=== PATIENT | female | born 1945 | race African-American/Black ===

== ENCOUNTER 2017-02-11 15:52 | Emergency (ER) | payer MEDICARE, OTHER ==
--- NOTE | 2017-02-11 17:21 | ER Document Report ---
ED Hip Pain/Injury - General Chief Complaint: L hip and leg pain Stated Complaint: LEFT HIP AND LEG PAIN Time seen by provider: 17:21 Mode of Arrival: Ambulatory Notes: 71-year-old female presents to ED for left hip and leg pain. She is also got head and neck and low back pain since fall in December. She states she has not had any imaging done since she fell. She states she went to her primary doctor and she did a echocardiogram to make sure she didn't have a heart problem when she fell but is done no imaging of her head neck back or hip. TRAVEL OUTSIDE OF THE [place] IN LAST 30 DAYS: No - HPI Patient complains to provider of: Injury, Pain, Hip, Thigh, Other - Head and neck and low back pain Occurred: Other - Several weeks states she fell in December Where: Public place - Grocery store Onset/Duration: Gradual Quality of pain: Achy, Sharp Severity: Severe Pain Level: 5 Context: Fell/slipped Symptoms prior to fall: Headache, Other - Neck pain back pain and left hip and leg pain Symptoms since fall: None Skin Color: Normal Rotation of extremity: None Pain with palpation of the pelvis: Yes Associated Symptoms: None Other injuries: Back, Head, Neck - Related Data Allergies/Adverse Reactions: No Known Allergies Allergy (Unverified 02/05/12 12:08) Past Medical History - General Information source: Patient - Social History Smoking Status: Never Smoker Cigarette use (# per day): No Chew tobacco use (# tins/day): No Smoking Education Provided: No Frequency of alcohol use: None Drug Abuse: None 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 Lives with: Family - Grandson Family History: CVA, DM, Hypertension, Malignancy, Thyroid Disfunction - Past Medical History Cardiac Medical History: Reports: Hx Hypertension Pulmonary Medical History: Reports: Hx Asthma Neurological Medical History: Reports: Hx Migraine Endocrine Medical History: Reports: Other - Enlarged thyroid Renal/ Medical History: Reports: None Malignancy Medical History: Reports: None GI Medical History: Reports: Hx Colonoscopy, Hx Endoscopy Musculoskeltal Medical History: Reports Hx Arthritis Skin Medical History: Reports None Psychiatric Medical History: Reports: None Traumatic Medical History: Reports: None Infectious Medical History: Reports: None Past Surgical History: Reports: Hx Bowel Surgery - Colon resection due to a large noncancerous polyp, Hx Hysterectomy, Hx Orthopedic Surgery - Knee replacement - Immunizations Hx Diphtheria, Pertussis, Tetanus Vaccination: No Review of Systems - Review of Systems Constitutional: No symptoms reported EENT: No symptoms reported Cardiovascular: No symptoms reported Respiratory: No symptoms reported Gastrointestinal: No symptoms reported Genitourinary: No symptoms reported Female Genitourinary: No symptoms reported Musculoskeletal: Back pain, Joint pain, Muscle pain, Muscle stiffness, Neck pain Skin: No symptoms reported Hematologic/Lymphatic: No symptoms reported Neurological/Psychological: Headaches -: Yes All other systems reviewed and negative Physical Exam - Vital signs Vitals: Temp Pulse BP Pulse Ox 98.1 F 100 186/80 H 96 02/11/17 16:28 02/11/17 16:28 02/11/17 16:28 02/11/17 16:28 Interpretation: Normal - General General appearance: Appears well, Alert - HEENT Head: Normocephalic, Atraumatic Eyes: Normal Pupils: PERRL Ears: Normal External canal: Normal Tympanic membrane: Normal Sinus: Normal Nasal: Normal Mouth/Lips: Normal Mucous membranes: Normal Pharynx: Normal Neck: Normal - Respiratory Respiratory status: No respiratory distress Chest status: Nontender Breath sounds: Normal Chest palpation: Normal - Cardiovascular Rhythm: Regular Heart sounds: Normal auscultation Murmur: No - Abdominal Inspection: Normal Distension: No distension Bowel sounds: Normal Tenderness: Nontender Organomegaly: No organomegaly - Back Back: Normal, Tender - Neck and lower back, CVA tenderness, Scars, Scoliosis, Wounds. No: Deformity/step-off, Vertebra tenderness - Extremities General upper extremity: Normal inspection, Nontender, Normal color, Normal ROM , Normal temperature General lower extremity: Normal inspection, Normal color, Normal ROM, Normal temperature, Normal weight bearing. No: Babita's sign Hip: Tender, Pain with ROM. 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 thomas and he suggested CT of the head and neck x-rays of the back and hip. These were all completed and no acute injuries noted on any of them. X-rays and CT discussed with patient and written reports given to patient and family to follow-up with her primary doctor. - Vital Signs Vital signs: Temp Pulse Resp BP Pulse Ox 98.1 F 100 186/80 H 96 02/11/17 16:28 02/11/17 16:28 02/11/17 16:28 02/11/17 16:28 - Diagnostic Test Radiology reviewed: Image reviewed, Reports reviewed Discharge - Discharge Clinical Impression: Neck pain, Left hip pain Headache Qualifiers: Headache type: unspecified Headache chronicity pattern: unspecified pattern Intractability: not intractable Qualified Code(s): R51 - Headache Low back pain Qualifiers: Chronicity: unspecified Back pain laterality: bilateral Sciatica presence: without sciatica Qualified Code(s): M54.5 - Low back pain Condition: Stable Disposition: HOME, SELF-CARE Additional Instructions: MUSCLE STRAIN: You have strained a muscle -- torn the fibers within the muscle. This often occurs with strenuous exertion, or during an injury that suddenly stretches the muscle. The seriousness of a strain varies. Some strains heal within days, others cause problems for months. X-rays cannot show a muscle strain. X-rays are taken only if symptoms suggest that a fracture could be present. The usual treatment of a muscle strain is rest and ice packs. Sometimes, a sling, splint, or crutches may be necessary to rest the muscle. The muscle can be used again once pain subsides. Severe strains require a special exercise and stretching program to prevent permanent stiffness and disability. Your doctor will advise you if this will be necessary. Call the doctor immediately if pain or swelling becomes severe, or if numbness or discoloration develop. CONTUSION: Your injury has resulted in a contusion -- a crushing of the deep tissues. No injury to important structures was detected during the physician's exam. Contusions vary in the amount of pain they cause, and in the length of time required for healing. Typically, the area will become bruised, and will remain painful to touch for two or three weeks. However, most patients are back to working and playing within a few days. After the initial period of rest and cold-packs, your symptoms (together with the doctor's recommendations) will determine how rapidly you can get back to full activity. Usually this means "do what feels okay, but don't do things that hurt." If re-examination was recommended, it's important to follow up as instructed. Call the doctor or return any time if pain increases, if swelling becomes severe, if you develop numbness or weakness in an injured extremity, or if any other alarming symptoms occur. LOW BACK PAIN: Three out of every four people will have an episode of disabling back pain during their lifetime. Most commonly the pain is due to straining of the muscles and ligaments in the low back. Usual treatment includes: (1) Rest on a firm surface. Avoid lying on your stomach. (2) Ice pack the painful area. After a few days, gentle heat may be used intermittently to relax the area, or ice packs can be continued. (3) Medication may be needed -- muscle relaxers and antiinflammatory medicines are commonly used. (4) As the back improves, exercises are prescribed to strengthen the back and abdominal muscles. Your doctor will advise you on the proper care for your back at each stage in your recovery. You may be better in a few days -- or healing may take several weeks. If new symptoms of a "herniated disc" (radiation of pain, numbness, or tingling down the back of the leg or weakness in the leg) occur, you should be re-examined. Further testing may be necessary. USE OF TYLENOL (ACETAMINOPHEN): Acetaminophen may be taken for pain relief or fever control. It's much safer than aspirin, offering a wider range of "safe" dosages. It is safe during . Some brand names are Tylenol, Panadol, Datril, Anacin 3, Tempra, and Liquiprin. Acetaminophen can be repeated every four hours. The following are maximum recommended dosages: WEIGHT Dose Drops Elixir Chewable( 80mg) (LBS.) drprs=droppers tsp=teaspoon 6 40 mg 0.4 ml (1/2) 6-11 80 mg 0.8 ml (full) tsp 1 tab 12-16 120 mg 1 1/2 drprs 3/4 tsp 1 1/2 tabs 17-23 160 mg 2 drprs 1 tsp 2 tabs 24-30 240 mg 3 drprs 1 1/2 tsp 3 tabs 30-35 320 mg 2 tsp 4 tabs 36-41 360 mg 2 1/4 tsp 4 1/2 tabs 42-47 400 mg 2 1/2 tsp 5 tabs 48-53 480 mg 3 tsp 6 tabs 54-59 520 mg 3 1/4 tsp 6 1/2 tabs 60-64 560 mg 3 1/2 tsp 7 tabs 65-70 600 mg 3 3/4 tsp 7 1/2 tabs 71-76 640 mg 4 tsp 8 tabs 77-82 720 mg 4 1/2 tsp 9 tabs 83-88 800 mg 5 tsp 10 tabs >89 pounds or adults 650 mg to 900 mg Acetaminophen can be repeated every four hours. Maximum dose not to exceed 4000 mg a day. These maximum recommended dosages are slightly higher than the dosages written on the product container, but these dosages are very safe and below the toxic dosage for acetaminophen. ICE PACKS: Apply ice packs frequently against the painful area. Many different schedules are recommended, such as "20 minutes on, 20 minutes off" or "one hour ice, two hours rest." If you need to work, you may need to go longer between ice treatments. You should plan to have the area ice packed AT LEAST one fourth of the time. The ice should be applied over the wrap, tape, or splint, or over a layer of cloth -- not directly against the skin. Some ice bags have a built-in cloth and can be put directly on the skin. WARM PACKS: After approximately two days, apply gentle heat (such as a heating pad or hot water bottle) for about 20 to 30 minutes about every two hours -- at least four times daily. Warmth and elevation will help you make a more rapid recovery , and will ease the pain considerably. Do not use HOT heat, and never apply heat for longer than 30 minutes. The continuous heat can invisibly damage skin and muscles -- even when no burn is seen on the surface. Damaged muscles can make you MORE sore. FOLLOW-UP CARE: If you have been referred to a physician for follow-up care, call the physician s office for an appointment as you were instructed or within the next two days. If you experience worsening or a significant change in your symptoms, notify the physician immediately or return to the Emergency Department at any time for re-evaluation. Call your primary doctor tomorrow and schedule a visit to follow-up with him take the results of your x-rays and CTs with you to your primary doctors to observe. Please complete the patient's satisfaction survey if you get one and return. If you do not receive a survey you can go to [facility] website [email or web address] and place your comments about your very good care. Thank you very much. It was a pleasure be in your medical provider today. Forms: Elevated Blood Pressure, Return to Work
[2017-02-11 19:00] VITALS: BP 156/69
== END 2017-02-11 19:00 | disposition home or self-care (01) ==
LOC: ER 15:52
DX: M79.605 Pain in left leg (principal); M25.552 Pain in left hip; R51 Headache; M54.2 Cervicalgia; I10 Essential (primary) hypertension; Z90.710 Acquired absence of both cervix and uterus; Z96.659 Presence of unspecified artificial knee joint
CPT/HCPCS: 70450; 72110; 72125; 99284

== ENCOUNTER 2017-03-23 22:25 | Emergency (ER) | payer MEDICARE ==
--- NOTE | 2017-03-24 05:07 | ER Document Report ---
HPI - HPI Patient complains to provider of: fullness to right ear Onset: Yesterday Pain Level: Denies Context: 71-year-old female complaining fullness to her right ear and decreased hearing. No headache or facial pain. No recent upper respiratory infection. No fever or chills. PCP dr [facility]. Associated Symptoms: None Exacerbated by: Denies Relieved by: Denies Similar symptoms previously: No Recently seen / treated by doctor: No - ROS ROS below otherwise negative: Yes Systems Reviewed and Negative: Yes All other systems reviewed and negative - DERM Skin Color: Normal Past Medical History - General Information source: Patient - Social History Smoking Status: Never Smoker Frequency of alcohol use: None Drug Abuse: None Family History: CVA, DM, Hypertension, Malignancy, Thyroid Disfunction - Past Medical History Cardiac Medical History: Reports: Hx Hypertension Pulmonary Medical History: Reports: Hx Asthma Neurological Medical History: Reports: Hx Migraine Renal/ Medical History: Denies: Hx Peritoneal Dialysis GI Medical History: Reports: Hx Gastroesophageal Reflux Disease, Hx Colonoscopy , Hx Endoscopy Musculoskeltal Medical History: Reports Hx Arthritis Past Surgical History: Reports: Hx Bowel Surgery - Colon resection due to a large noncancerous polyp, Hx Hysterectomy, Hx Orthopedic Surgery - Knee replacement - Immunizations Hx Diphtheria, Pertussis, Tetanus Vaccination: No Vertical Provider Document - CONSTITUTIONAL Agree With Documented VS: Yes Exam Limitations: No Limitations General Appearance: No Apparent Distress - INFECTION CONTROL TRAVEL OUTSIDE OF THE [place] IN LAST 30 DAYS: No - HEENT HEENT: negative: Tympanic Membrane Red, Tympanic Membrane Bulging Notes: fluid behind right TM, some wax in canal. TM and canal normal on the left. - NECK Neck: Supple - RESPIRATORY Respiratory: Breath Sounds Normal, No Respiratory Distress O2 Sat by Pulse Oximetry: 97 - CARDIOVASCULAR Cardiovascular: Regular Rate, Regular Rhythm - NEURO Level of Consciousness: Awake, Alert, Appropriate - DERM Integumentary: Warm, Dry, No Rash Course - Re-evaluation Re-evalutation: 03/24/17 05:17 cleared some and can hear better after bearing down with nose occluded. - Vital Signs Vital signs: Temp Pulse Resp BP Pulse Ox 97.6 F 82 20 177/76 H 97 03/24/17 00:11 03/24/17 00:11 03/24/17 00:11 03/24/17 00:11 03/24/17 00:11 Discharge - Discharge Clinical Impression: Right Serous otitis media Condition: Good Disposition: HOME, SELF-CARE Instructions: Serous Otitis Media ([facility]), Use of Diphenhydramine Additional Instructions: see dr. hartman next week for follow up over the counter antihistamines may help to er if worse
[2017-03-24 05:49] VITALS: BP 122/54
== END 2017-03-24 05:49 | disposition home or self-care (01) ==
LOC: ER 22:25
DX: H65.91 Unspecified nonsuppurative otitis media, right ear (principal); I10 Essential (primary) hypertension; J45.909 Unspecified asthma, uncomplicated
CPT/HCPCS: 99282

== ENCOUNTER 2019-01-23 17:25 | Emergency (ER) | payer MEDICARE ==
[2019-01-23 17:53] VITALS: BP 154/51
--- NOTE | 2019-01-23 18:18 | ER Document Report ---
ED Medical Screen (RME) - General Chief Complaint: Leg Swelling Stated Complaint: LEG PAIN AND SWELLING Time Seen by Provider: 01/23/19 18:15 Mode of Arrival: Ambulatory Information source: Patient Notes: Patient presents complaining of right lower extremity pain and swelling. Patient does report recent surgery on 01/02/2019 to have breast implants removed after reconstructive surgery. Patient states that she has had some chills although denies any fever. Patient reports slimy drainage from the incision to the right breast area. I have greeted and performed a rapid initial assessment of this patient. A comprehensive ED assessment and evaluation of the patient, analysis of test results and completion of the medical decision making process will be conducted by additional ED providers. TRAVEL OUTSIDE OF THE [place] IN LAST 30 DAYS: No - Related Data Allergies/Adverse Reactions: No Known Allergies Allergy (Unverified 03/24/17 00:10) Past Medical History - Past Medical History Cardiac Medical History: Reports: Hx Hypertension Pulmonary Medical History: Reports: Hx Asthma Neurological Medical History: Reports: Hx Migraine Renal/ Medical History: Denies: Hx Peritoneal Dialysis GI Medical History: Reports: Hx Gastroesophageal Reflux Disease, Hx Colonoscopy, Hx Endoscopy Musculoskeltal Medical History: Reports Hx Arthritis Past Surgical History: Reports: Hx Bowel Surgery - Colon resection due to a large noncancerous polyp, Hx Hysterectomy, Hx Orthopedic Surgery - Knee replacement - Immunizations Hx Diphtheria, Pertussis, Tetanus Vaccination: No Physical Exam - Vital signs Vitals: Temp Pulse Resp BP Pulse Ox 98.6 F 107 H 15 154/51 H 96 01/23/19 17:52 01/23/19 17:52 01/23/19 17:52 01/23/19 17:52 01/23/19 17:52 - Extremities General lower extremity: Tender - RLE, Edema - 2+ edema to right lower extremity Course - Vital Signs Vital signs: Temp Pulse Resp BP Pulse Ox 98.6 F 107 H 15 154/51 H 96 01/23/19 17:52 01/23/19 17:52 01/23/19 17:52 01/23/19 17:52 01/23/19 17:52
[2019-01-23 18:41] LABS: ABSOLUTE EOSINOPHILS # (AUTO) 0.1 10^3/uL (0.0-0.6); ABSOLUTE LYMPHOCYTES (AUTO) 1.4 10^3/uL (0.5-4.7); ABSOLUTE MONOCYTES (AUTO) 0.6 10^3/uL (0.1-1.4); ABSOLUTE NEUT (AUTO) 7.8 10^3/uL (1.7-8.2); BASOPHILS % (AUTO) 0.2 % (0-2); EOSINOPHILS % (AUTO) 1.4 % (0-6); HEMATOCRIT 29.4 % (36.0-47.0); HEMOGLOBIN 9.6 g/dL (12.0-15.5); LYMPHOCYTES % (AUTO) 14.2 % (13-45); MEAN CORPUSCULAR HEMOGLOBIN 29.9 pg (27.0-33.4); MEAN CORPUSCULAR HGB CONC 32.6 g/dL (32.0-36.0); MEAN CORPUSCULAR VOLUME 92 fl (80-97); MONOCYTES % (AUTO) 6.4 % (3-13); PLATELET COUNT 472 10^3/uL (150-450); RED BLOOD COUNT 3.21 10^6/uL (3.72-5.28); RED CELL DISTRIBUTION WIDTH 13.6 % (11.5-14.0); SEGMENTED NEUTROPHILS % (AUTO) 77.8 % (42-78); TOTAL CELLS COUNTED % (AUTO) 100 %
[2019-01-23 18:59] LABS: ANION GAP 7 (5-19); BLOOD UREA NITROGEN 12 mg/dL (7-20); CALCIUM 8.9 mg/dL (8.4-10.2); CARBON DIOXIDE 27 mmol/L (22-30); CHLORIDE 108 mmol/L (98-107); GLUCOSE 111 mg/dL (75-110); POTASSIUM 3.8 mmol/L (3.6-5.0); SODIUM 142.1 mmol/L (137-145)
[2019-01-23 19:31] LABS: INTERNATIONAL RATION (INR) 1.03
--- NOTE | 2019-01-23 19:35 | RADIOLOGY REPORT (SQ) ---
EXAM DESCRIPTION: VENOUS UNILATERAL LOWER COMPLETED DATE/TIME: 01/23/2019 7:27 pm REASON FOR STUDY: RLE pain, swelling COMPARISON: None. TECHNIQUE: Dynamic and static vega scale and color images acquired of the right leg venous system. S elected spectral images acquired with additional compression and augmentation maneuvers. The contrala teral common femoral vein and saphenofemoral junction were also imaged. Images stored on PACS. LIMITATIONS: None. FINDINGS: COMMON FEMORAL: Normal phasicity, compression and augmentation. No visualized echogenic ma terial on vega scale. No defects on color images. FEMORAL: Normal compression and augmentation. No visualized echogenic material on vega scale. No defe cts on color images. POPLITEAL: Normal compression, augmentation. No visualized echogenic material on vega scale. No defec ts on color images. CALF VESSELS: Normal compression, augmentation. No visualized echogenic material on vega scale. No de fects on color images. GSV and SSV: Normal compression, augmentation. No visualized echogenic material on vega scale. No def ects on color images. ANY DEEP VENOUS INSUFFICIENCY: Not evaluated. ANY EVIDENCE OF POPLITEAL CYST: No. OTHER: No other significant finding. CONTRALATERAL COMMON FEMORAL VEIN AND SAPHENOFEMORAL JUNCTION: Normal phasicity, compression and augmentation. No visualized echogenic material on vega scale. No de fects on color images. IMPRESSION: NO EVIDENCE OF DVT OR SVT IN THE RIGHT LEG. TECHNICAL DOCUMENTATION: JOB ID: [id number] [employer]- All Rights Reserved Reading location - IP/workstation name: [email or web address]
--- NOTE | 2019-01-23 22:52 | ER Document Report ---
ED General - General Chief Complaint: Leg Swelling Stated Complaint: LEG PAIN AND SWELLING Time Seen by Provider: 01/23/19 18:15 Mode of Arrival: Ambulatory Notes: Patient is a 73-year-old female with past medical history of breast resection status post cosmetic reimplantation who had recent removal of the cosmetic re plantation who presents with 3 weeks of swelling to her right lower extremity. She describes this as being gradual in onset, mild to moderate in nature, gradually worsening since onset. Nothing seems to improve or worsen the symptoms. No history of similar symptoms in the past. Patient was worried that she may have a blood clot in the leg. She has also had some drainage from the wound to the right chest and has been following with her surgeon regarding this issue. She denies fever or constitutional symptoms. No shortness of breath. No chest pain. TRAVEL OUTSIDE OF THE [place] IN LAST 30 DAYS: No - Related Data Allergies/Adverse Reactions: No Known Allergies Allergy (Verified 01/23/19 19:22) Past Medical History - General Information source: Patient - Social History Smoking Status: Never Smoker Frequency of alcohol use: None Drug Abuse: None Lives with: Family Family History: CVA, DM, Hypertension, Malignancy, Thyroid Disfunction Patient has suicidal ideation: No Patient has homicidal ideation: No - Past Medical History Cardiac Medical History: Reports: Hx Hypertension Pulmonary Medical History: Reports: Hx Asthma Neurological Medical History: Reports: Hx Migraine Renal/ Medical History: Denies: Hx Peritoneal Dialysis GI Medical History: Reports: Hx Gastroesophageal Reflux Disease, Hx Colonoscopy, Hx Endoscopy Musculoskeletal Medical History: Reports Hx Arthritis Past Surgical History: Reports: Hx Bowel Surgery - Colon resection due to a large noncancerous polyp, Hx Breast Surgery - augmentation, Hx Hysterectomy, Hx Orthopedic Surgery - Knee replacement - Immunizations Hx Diphtheria, Pertussis, Tetanus Vaccination: No Review of Systems - Review of Systems Notes: Constitutional: Negative for fever. HENT: Negative for sore throat. Eyes: Negative for visual changes. Cardiovascular: Negative for chest pain. Respiratory: Negative for shortness of breath. Gastrointestinal: Negative for abdominal pain, vomiting or diarrhea. Genitourinary: Negative for dysuria. Musculoskeletal: Positive for right leg swelling Skin: Positive for drainage from the right chest wall wound Neurological: Negative for headaches, weakness or numbness. 10 point ROS negative except as marked above and in HPI. Physical Exam - Vital signs Vitals: Temp Pulse Resp BP Pulse Ox 98.6 F 107 H 15 154/51 H 96 01/23/19 17:52 01/23/19 17:52 01/23/19 17:52 01/23/19 17:52 01/23/19 17:52 Interpretation: Hypertensive, Tachycardic Notes: PHYSICAL EXAMINATION: GENERAL: Well-appearing, well-nourished and in no acute distress. HEAD: Atraumatic, normocephalic. EYES: Pupils equal round and reactive to light, extraocular movements intact, sclera anicteric, conjunctiva are normal. ENT: nares patent, oropharynx clear without exudates. Moist mucous membranes. NECK: Normal range of motion, supple without lymphadenopathy LUNGS: Breath sounds clear to auscultation bilaterally and equal. No wheezes rales or rhonchi. HEART: Regular rate and rhythm without murmurs ABDOMEN: Soft, nontender, normoactive bowel sounds. No guarding, no rebound. No masses appreciated. EXTREMITIES: Normal range of motion, 1+ pitting edema in the lower extremity, none present on the left. NEUROLOGICAL: No focal neurological deficits. Moves all extremities spontaneously and on command. PSYCH: Normal mood, normal affect. SKIN: Warm, Dry, normal turgor, there is moderate drainage that appears mostly serous in nature from the posterior aspect of the incision along the lateral aspect of the right breast line Course - Re-evaluation Re-evalutation: 01/23/19 22:51 Patient presents with right lower extreme to unilateral leg swelling that has been ongoing since having breast surgery 3 weeks ago. It is Doppler study without any evidence of DVT. Patient is also complaining of some ongoing drainage from the incisional site along her right breast line and has a ready followed with her surgeon regarding this issue. The area itself is well in appearance, some mild serous drainage from the area, no evidence of fluctuance, induration heat or evidence of cellulitis. I have advised ongoing outpatient follow-up with her surgeon. At this time will discharge with return precautions and follow-up recommendations. Verbal discharge instructions given a the bedside and opportunity for questions given. Medication warnings reviewed. Patient is in agreement with this plan and has verbalized understanding of return precautions and the need for primary care follow-up in the next 24-72 hours. - Vital Signs Vital signs: Temp Pulse Resp BP Pulse Ox 98.6 F 107 H 15 154/51 H 96 01/23/19 17:52 01/23/19 17:52 01/23/19 17:52 01/23/19 17:52 01/23/19 17:52 - Laboratory Result Diagrams: 01/23/19 18:24 01/23/19 18:24 Laboratory results interpreted by me: 01/23/19 01/23/19 01/23/19 18:24 18:24 19:15 RBC 3.21 L Hgb 9.6 L Hct 29.4 L Plt Count 472 H APTT 37.0 H Chloride 108 H Glucose 111 H - Diagnostic Test Radiology reviewed: Reports reviewed Discharge - Discharge Clinical Impression: Right leg swelling, Problem involving surgical incision Disposition: ELOPED
== END 2019-01-23 22:31 | disposition left against medical advice (07) ==
LOC: ER 17:25
DX: M79.89 Other specified soft tissue disorders (principal); T81.9XXA Unspecified complication of procedure, initial encounter; Y83.8 Other surgical procedures as the cause of abnormal reaction of the patient, or of later complication, without mention of misadventure at the time of the procedure; I10 Essential (primary) hypertension; J45.909 Unspecified asthma, uncomplicated
CPT/HCPCS: 36415; 80048; 85025; 85610; 85730; 93971; 99281

== ENCOUNTER → 2020-07-08 | Outpatient (CLI) | payer MEDICARE ==
--- NOTE | 2020-07-09 17:08 | RADIOLOGY REPORT (SQ) ---
EXAM DESCRIPTION: KNEE RIGHT 3 VIEWS IMAGES COMPLETED DATE/TIME: 07/08/2020 5:37 pm REASON FOR STUDY: (M25.571)PAIN IN RIGHT ANKLE AND JOINTS OF RIGHT FOOT;(M25.561)PAIN IN RIGH M25.57 1 PAIN IN RIGHT ANKLE AND JOINTS OF RIGHT FOOT M25.561 PAIN IN RIGHT KNEE COMPARISON: None. NUMBER OF VIEWS: Three views. TECHNIQUE: AP, lateral, and sunrise patella radiographic images acquired of the right knee. LIMITATIONS: None. FINDINGS: MINERALIZATION: Normal. BONES: No acute fracture or dislocation. No worrisome bone lesions. Degenerative changes. JOINT: No effusion. SOFT TISSUES: No soft tissue swelling. No radio-opaque foreign body. OTHER: No other significant finding. IMPRESSION: NEGATIVE STUDY OF THE RIGHT KNEE. NO RADIOGRAPHIC EVIDENCE OF ACUTE INJURY. TECHNICAL DOCUMENTATION: JOB ID: [id number] 2010 [employer]- All Rights Reserved Reading location - IP/workstation name: [email or web address]
--- NOTE | 2020-07-09 17:08 | RADIOLOGY REPORT (SQ) ---
EXAM DESCRIPTION: ANKLE RIGHT COMPLETE IMAGES COMPLETED DATE/TIME: 07/08/2020 5:37 pm REASON FOR STUDY: (M25.571)PAIN IN RIGHT ANKLE AND JOINTS OF RIGHT FOOT M25.571 PAIN IN RIGHT ANKLE AND JOINTS OF RIGHT FOOT M25.561 PAIN IN RIGHT KNEE COMPARISON: None. NUMBER OF VIEWS: Three views. TECHNIQUE: AP, lateral, and oblique radiographic images acquired of the right ankle. LIMITATIONS: None. FINDINGS: MINERALIZATION: Normal. BONES: No acute fracture or dislocation. No worrisome bone lesions. JOINTS: No effusions. SOFT TISSUES: No soft tissue swelling. No foreign body. OTHER: No other significant finding. IMPRESSION: NEGATIVE STUDY OF THE RIGHT ANKLE. NO RADIOGRAPHIC EVIDENCE OF ACUTE INJURY. TECHNICAL DOCUMENTATION: JOB ID: [id number] 2010 [employer]- All Rights Reserved Reading location - IP/workstation name: [email or web address]
== END ==
LOC: RAD 16:57
PROVIDERS: ATTEND Nurse Practitioner
DX: M25.571 Pain in right ankle and joints of right foot (principal); M25.561 Pain in right knee